=== PATIENT | male | born 2000 | race Caucasian/White ===

== ENCOUNTER 2024-01-26 23:25 | Emergency (ER) | payer SELFPAY ==
[~2024-01-26] VITALS: Ht 172.7 cm; Wt 94.0 kg
[2024-01-26 23:41] VITALS: BP 114/76; TEMP 98.5; O2SAT 99
[2024-01-26 23:42] VITALS: PULSE 86
[2024-01-27] MEDS: KETOROLAC 15MG/ML VIAL IM ONE (00:15)
== END 2024-01-27 01:45 | disposition left against medical advice (07) ==
LOC: ER 23:25
DX: S80.12XA Contusion of left lower leg, initial encounter (principal); R07.89 Other chest pain; V89.2XXA Person injured in unspecified motor-vehicle accident, traffic, initial encounter; Y93.89 Activity, other specified; Y92.89 Other specified places as the place of occurrence of the external cause; Y99.8 Other external cause status
CPT/HCPCS: 93005; 99283

== ENCOUNTER 2024-05-31 08:21 | Emergency (ER) | payer MEDICAID ==
[~2024-05-31] VITALS: Ht 180.3 cm; Wt 95.0 kg
[2024-05-31 08:33] VITALS: O2SAT 100
[2024-05-31 08:42] VITALS: TEMP 98; O2SAT 99
[2024-05-31 09:13] LABS: BASOPHILS % 0.3 % (0.0-2.0); EOSINOPHILS % 0.1 % (0.0-5.0); HEMATOCRIT. 48.4 % (42.0-52.0); HEMOGLOBIN. 16.1 g/dL (14.0-18.0); LYMPHOCYTES % 9.4 % (20.0-50.0); MEAN CORPUSCULAR HEMOGLOBIN 30.2 pg (28.0-32.0); MEAN CORPUSCULAR HGB CONC 33.2 g/dL (31.0-37.0); MEAN CORPUSCULAR VOLUME 90.7 fL (80.0-94.0); MEAN PLATELET VOLUME 9.2 fl (7.4-10.4); MONOCYTES % 4.2 % (2.0-8.0); PLATELET 244 x1000/uL (130-400); RED BLOOD CELL COUNT 5.34 mill/uL (4.7-6.1); RED CELL DISTRIBUTION WIDTH 12.4 % (11.6-14.6); WHITE BLOOD COUNT 14.3 x1000/uL (4.5-11.0)
[2024-05-31 09:19] LABS: CHLORIDE 105 mEq/L (98-107); POTASSIUM 4.1 mEq/L (3.5-5.1); SODIUM 138 mEq/L (136-145)
[2024-05-31 09:20] LABS: CALCIUM 10.3 mg/dL (8.7-10.4); CARBON DIOXIDE 26 mEq/L (21-32)
[2024-05-31 09:22] LABS: INR 0.9; PROTHROMBIN TIME 10.3 sec (9.6-11.0)
[2024-05-31 09:23] LABS: CLARITY URINE CLEAR (CLEAR); COLOR URINE YELLOW (YELLOW); GLUCOSE URINE 3+ (NEGATIVE); KETONES URINE NEGATIVE (NEGATIVE); LEUKOCYTE ESTERASE URINE NEGATIVE (NEGATIVE); NITRITE URINE NEGATIVE (NEGATIVE); OCCULT BLOOD URINE NEGATIVE (NEGATIVE); PH URINE 5.5 (4.5-8.0); PROTEIN URINE NEGATIVE (NEGATIVE); SPECIFIC GRAVITY URINE 1.033 (1.005-1.030); UROBILINOGEN URINE 0.2 E.U./dL (0.2-1.0)
[2024-05-31 09:25] LABS: CREATININE 1.1 mg/dL (0.6-1.3); GLUCOSE 311 mg/dL (70-105); UREA NITROGEN BLOOD 8 mg/dL (9-23)
[2024-05-31 10:07] LABS: BACTERIA URINE NONE SEEN; RBC URINE NONE SEEN /hpf (0-2); WBC URINE NONE SEEN /hpf (0-2)
[2024-05-31] MEDS ORDERED: KETOROLAC 30MG/ML VIAL IM ONE (11:00)
[2024-05-31 13:40] VITALS: BP 108/71; PULSE 71; RESP 16
[2024-05-31] MEDS: KETOROLAC 30MG/ML VIAL IM NR (13:40)
== END 2024-05-31 13:41 | disposition home or self-care (01) ==
LOC: ER 08:21
DX: R10.9 Unspecified abdominal pain (principal)
CPT/HCPCS: 99285; 74176; 93976; 80048; 81003; 83690; 85025; 85610; 36415; 76870; 96372; J1885